=== PATIENT | male | born 1975 | race African-American/Black ===

== ENCOUNTER 2018-06-14 21:29 | Emergency (ER) | payer OTHER ==
[~2018-06-14] VITALS: Ht 180.3 cm; Wt 82.6 kg
[2018-06-14] MEDS ORDERED: NOHOMEMEDICATIONS (21:43)
[2018-06-14] MEDS ORDERED: TRIPLE ANTIBIOT28 G2 TOP (22:34)
[2018-06-14 22:55] VITALS: BP 128/85
== END 2018-06-14 22:56 | disposition home or self-care (01) ==
LOC: ER 21:29
DX: S61.011A Laceration without foreign body of right thumb without damage to nail, initial encounter (principal); F17.210 Nicotine dependence, cigarettes, uncomplicated; Z88.8 Allergy status to other drugs, medicaments and biological substances; W26.8XXA Contact with other sharp object(s), not elsewhere classified, initial encounter; Y93.89 Activity, other specified; Y92.89 Other specified places as the place of occurrence of the external cause; Y99.0 Civilian activity done for income or pay

== ENCOUNTER 2018-10-31 00:44 | Emergency (ER) | payer OTHER ==
[~2018-10-31] VITALS: Ht 180.3 cm; Wt 81.7 kg
[~2018-10-31 00:44] MED LIST: NOHOMEMEDICATIONS; TRIPLE ANTIBIOT28 G2 TOP
[2018-10-31 03:13] VITALS: BP 138/79
== END 2018-10-31 03:14 | disposition home or self-care (01) ==
LOC: ER 00:44
DX: S51.811A Laceration without foreign body of right forearm, initial encounter (principal); F17.210 Nicotine dependence, cigarettes, uncomplicated; Z88.8 Allergy status to other drugs, medicaments and biological substances; W26.8XXA Contact with other sharp object(s), not elsewhere classified, initial encounter; Y93.89 Activity, other specified; Y92.89 Other specified places as the place of occurrence of the external cause; Y99.8 Other external cause status